=== PATIENT | female | born 1970 | race Caucasian/White ===

== ENCOUNTER 2019-12-16 06:03 | Day surgery (SDC) | payer OTHER ==
[~2019-12-16 06:03] MED LIST: Lactated Ringers 1,000 ML IV SCH; ceFAZolin 2 GM in Premix Bag 1 BAG IV ONE
[2019-12-16] MEDS ORDERED: Octyl 2-Cyanoacrylate 1 Tube ONE (07:17)
[2019-12-16] MEDS ORDERED: Bupivacaine 0.25%/EPINEPHrine 1:200,000 10 ML SDV ONE ×2 (07:17→08:08)
[2019-12-16] MEDS ORDERED: Rocuronium Bromide 50 MG/5 ML Syringe ONE (07:33)
[2019-12-16] MEDS ORDERED: Dexamethasone 4 MG/ML 5 ML MDV ONE (07:33)
[2019-12-16] MEDS ORDERED: Ondansetron 4 MG/2 ML SDV ONE (07:33)
[2019-12-16] MEDS ORDERED: Midazolam 1 MG/ML 2 ML SDV ONE (07:34)
[2019-12-16] MEDS ORDERED: Propofol 200 MG/20 ML SDV ONE (07:34)
[2019-12-16] MEDS ORDERED: fentaNYL 250 MCG/5 ML SDV ONE ×2 (07:34→08:57)
[2019-12-16] MEDS ORDERED: Glycopyrrolate 0.2 MG/ML SDV ONE ×2 (07:34→09:15)
[2019-12-16] MEDS ORDERED: Scopolamine 1.5 MG Transdermal Patch TRDERM PRN (07:48)
--- NOTE | 2019-12-16 07:55 | PCM.PREANE ---
Preanesthetic Assessment - Anesthesia/Transfusion/Family Hx Anesthesia History: Prior Anesthesia Without Reaction Family History of Anesthesia Reaction: No Transfusion History: No Prior Transfusion(s) Intubation History: Unknown - Review of Systems General: No Symptoms Pulmonary: No Symptoms Cardiovascular: No Symptoms Gastrointestinal: Abdominal Pain Neurological: No Symptoms Other: Reports: None - Physical Assessment Height: 5 ft 3 in Weight: 103.419 kg ASA Class: 2 Mental Status: Alert & Oriented x3 Airway Class: Mallampati = 2 Dentition: Reports: Normal Dentition Thyro-Mental Finger Breadths: 2 Mouth Opening Finger Breadths: 2 ROM/Head Extension: Full Lungs: Clear to Auscultation, Normal Respiratory Effort Cardiovascular: Regular Rate, Regular Rhythm - Lab Values: Laboratory Last Values Urine HCG, Qual NEGATIVE (NEGATIVE) 12/16/19 06:30 SARS Virus RNA (PCR) NEGATIVE (NEGATIVE) 12/16/19 06:15 - Allergies Allergies/Adverse Reactions: Allergies Allergy/AdvReac Type Severity Reaction Status Date / Time adhesive Allergy Blisters Verified 12/10/19 13:41 aspirin Allergy Vomiting Verified 12/10/19 13:41 bacitracin Allergy "sores" Verified 12/10/19 13:41 [From Neosporin ([id number])] neomycin Allergy "sores" Verified 12/10/19 13:41 [From Neosporin ([id number])] polymyxin B Allergy "sores" Verified 12/10/19 13:41 [From Neosporin ([id number])] - Blood Blood Available: No - Anesthesia Plan Pre-Op Medication Ordered: None - Acknowledgements Anesthesia Type Planned: General Anesthesia Pt an Appropriate Candidate for the Planned Anesthesia: Yes Alternatives and Risks of Anesthesia Discussed w Pt/Guardian: Yes Pt/Guardian Understands and Agrees with Anesthesia Plan: Yes PreAnesthesia Questionnaire HEENT History: Reports: Allergic Rhinitis, Other (See Below) Other HEENT History: wears glasses Cardiovascular History: Reports: None Respiratory History: Reports: None Gastrointestinal History: Reports: GERD, Other (See Below) (cholecystitis) Genitourinary History: Reports: None Musculoskeletal History: Reports: Arthritis (bilat. knees and right hip), Back Pain, Chronic Neurological History: Reports: None Psychiatric History: Reports: None Endocrine/Metabolic History: Reports: Hypothyroidism, Obesity/BMI 30+ (BMI 40.39) Hematologic History: Reports: None Immunologic History: Reports: None Oncologic (Cancer) History: Reports: None Dermatologic History: Reports: None - Past Surgical History Head Surgeries/Procedures: Reports: None HEENT Surgical History: Reports: None Cardiovascular Surgical History: Reports: None Respiratory Surgical History: Reports: None GI Surgical History: Reports: None Female Surgical History: Reports: Breast Biopsy (lumpectomy) Endocrine Surgical History: Reports: None Neurological Surgical History: Reports: None Musculoskeletal Surgical History: Reports: Other (See Below) Other Musculoskeletal Surgeries/Procedures:: left foot surgery Oncologic Surgical History: Reports: None Dermatological Surgical History: Reports: None - SUBSTANCE USE Smoking Status *Q: Former Smoker (quit ') Tobacco Use Within Last Twelve Months: No - HOME MEDS Home Medications: Home Meds Ascorbate Calcium [Vitamin C] 2,000 mg PO DAILY 12/10/19 [History] Cetirizine [ZyrTEC] 10 mg PO DAILY 12/10/19 [History] Cyclobenzaprine HCl 10 mg PO ASDIRECTED PRN 12/10/19 [History] Fish Oil/[place]-3 Fatty Acids [Fish Oil 1,000 MG] 2,000 mg PO DAILY 12/10/19 [History] Furosemide [Lasix] 10 mg PO ASDIRECTED 12/10/19 [History] Levothyroxine Sodium [Synthroid] 175 mcg PO DAILY 12/10/19 [History] Multivitamin [Multivitamins] 1 tab PO DAILY 12/10/19 [History] Naproxen Sodium [Aleve] 1 tab PO DAILY 12/10/19 [History] Omeprazole 20 mg PO DAILY 12/10/19 [History] atorvaSTATin Calcium [Atorvastatin Calcium] 20 mg PO DAILY 12/10/19 [History] traMADol HCl [Tramadol HCl] 50 mg PO ASDIRECTED PRN 12/10/19 [History] - CURRENT (IN HOUSE) MEDS Current Meds: Current Medications Lactated Ringer's (Ringers, Lactated) 1,000 mls @ 125 mls/hr IV ASDIRECTED ALPHONSO Scopolamine (Transderm-Scop) 1.5 mg TRDERM Q72H PRN PRN Reason: Nausea Discontinued Medications Bupivacaine HCl/Epinephrine Bitart (Marcaine 0.25%/Epinephrine 1:200,000) Confirm Administered Dose 20 ml .ROUTE .STK-MED ONE Stop: 12/16/19 07:18 Dexamethasone (Dexamethasone) Confirm Administered Dose 20 mg .ROUTE .STK-MED ONE Stop: 12/16/19 07:34 Fentanyl (Sublimaze) Confirm Administered Dose 250 mcg .ROUTE .STK-MED ONE Stop: 12/16/19 07:35 Glycopyrrolate (Robinul) Confirm Administered Dose 0.2 mg .ROUTE .STK-MED ONE Stop: 12/16/19 07:35 Cefazolin Sodium/Dextrose 2 gm (/ Premix) 50 mls @ 100 mls/hr IV ONETIME ONE Stop: 12/16/19 05:29 Midazolam HCl (Versed 1 Mg/Ml) Confirm Administered Dose 2 mg .ROUTE .STK-MED ONE Stop: 12/16/19 07:35 Octyl Cyanoacrylate (Dermabond Advance) Confirm Administered Dose 1 applic .ROUTE .STK-MED ONE Stop: 12/16/19 07:18 Ondansetron HCl (Zofran) Confirm Administered Dose 4 mg .ROUTE .STK-MED ONE Stop: 12/16/19 07:34 Propofol (Diprivan 20 Ml) Confirm Administered Dose 200 mg .ROUTE .STK-MED ONE Stop: 12/16/19 07:35 Rocuronium [place] (Rocuronium [place]) Confirm Administered Dose 50 mg .ROUTE .STK-MED ONE Stop: 12/16/19 07:34
[2019-12-16] MEDS ORDERED: Bupivacaine 0.25% 10 ML SDV ONE (08:01)
[2019-12-16] MEDS ORDERED: Sodium Chloride 0.9% 20 ML ONE (08:26)
[2019-12-16] MEDS ORDERED: ceFAZolin 1 GM Vial ONE (08:26)
[2019-12-16] MEDS ORDERED: Acetaminophen 1,000 MG in Premix Bag 1 BAG IV PRN (09:24)
[2019-12-16] MEDS ORDERED: fentaNYL 100 MCG/2 ML SDV IVPUSH PRN (09:24)
[2019-12-16] MEDS ORDERED: Ketorolac 30 MG/ML SDV ONE (09:25)
--- NOTE | 2019-12-16 09:47 | PCM.OPNOTE ---
- General Post-Op/Procedure Note Date of Surgery/Procedure: 12/16/19 Operative Procedure(s): lap missy Findings: gb was yellow and green cw chronic cholecystitis, wall is not thickened; large gallstone;[id number] Pre Op Diagnosis: chronic cholecystitis Post-Op Diagnosis: Same Anesthesia Technique: General ET Tube Primary Surgeon: Paul Trammell Pathology: sent Complications: None Condition: Good
[2019-12-16] MEDS ORDERED: Acetaminophen/oxyCODONE 325-5 MG Tab PO PRN (09:51)
--- NOTE | 2019-12-16 10:38 | PCM.POSTAN ---
POST ANESTHESIA ASSESSMENT - MENTAL STATUS Mental Status: Alert, Oriented - VITAL SIGNS Vital Signs: Last Vital Signs Temp 36.3 C 12/16/19 09:44 Pulse 68 12/16/19 10:34 Resp 13 12/16/19 10:34 BP 124/68 12/16/19 10:34 Pulse Ox 94 L 12/16/19 10:34 - RESPIRATORY Respiratory Status: Respiratory Rate WNL, Airway Patent, O2 Saturation Stable - CARDIOVASCULAR CV Status: Pulse Rate WNL, Blood Pressure Stable - GASTROINTESTINAL GI Status: No Symptoms - PAIN Pain Score: 0 - POST OP HYDRATION Hydration Status: Adequate & Stable - OBSERVATIONS Free Text/Narrative:: No anesthesia problems
[2019-12-16] MEDS ORDERED: Ondansetron 4 MG/2 ML SDV IVPUSH ONE (12:08)
--- NOTE | 2019-12-16 12:48 | OR ---
SURGEON: Paul Trammell MD DATE OF PROCEDURE: 12/16/2019 PREOPERATIVE DIAGNOSIS: Chronic cholecystitis. POSTOPERATIVE DIAGNOSIS: Chronic cholecystitis. PROCEDURE PROPOSED: Laparoscopic cholecystectomy. PROCEDURE PERFORMED: Laparoscopic cholecystectomy. FINDINGS: Gallbladder was yellow and green consistent with chronic cholecystitis and wall is not thickened, large gallstone. PROCEDURE NOTE: The patient was taken to the operating room and placed in the supine position. After the intubation of general endotracheal anesthesia, the patient's abdomen was prepped and draped in the usual sterile fashion. Using Optiview, a 12 mm trocar was placed supraumbilically and then followed with pneumoperitoneum. A 5 mm trocar was placed in the epigastrium and two 5 mm trocars placed in the right upper quadrant. The placement of the last three trocars was done under direct video supervision. Upon gaining entrance to the abdominal cavity, an extensive examination was then performed. The gallbladder was located and identified and retracted to the dome of the liver at the triangle of [place]ot. The cystic duct was clipped three more times and then using the endoscopic clip, was transected with placement of the endoscopic clip and transection was performed with care, ensuring the posterior prong of the instruments were clearly visualized prior to exercising the procedure. The gallbladder was dissected using electrocautery out of the liver bed and then removed using endoscopic bag through the umbilical site. The gallbladder was removed en bloc and there was no bile spillage and this was then followed with extensive irrigation until the bile was clear from blood and bile. The trocars were then removed under direct video supervision. The 12 mm umbilical site was then closed with deep stitches using 0 Vicryl followed with proximal stitches using 3-0 Vicryl and Dermabond. The other three trocar sites were closed with 3-0 Vicryl followed with approximation of skin with Dermabond. The patient was then awakened and extubated and transferred to the recovery room in hemodynamically stable condition. At the conclusion of the surgery, before closing the abdominal wound, instrument count and sponge count were done and were correct. The patient tolerated the procedure well and there were no intraoperative complications. Dr. Trammell was present through the whole procedure. Just before surgery, a timeout was called. The patient was identified and procedure identified and procedure started. Intraoperative findings as dictated above. As always, thank you for the kind referral. JESSICA / REECE /[id number]
--- NOTE | 2019-12-16 13:41 | PCM48HPAN ---
Post Anesthesia Note - EVALUATION WITHIN 48HRS OF ANESTHETIC Vital Signs in Normal Range: Yes Patient Participated in Evaluation: Yes Respiratory Function Stable: Yes Airway Patent: Yes Cardiovascular Function Stable: Yes Hydration Status Stable: Yes Pain Control Satisfactory: Yes Nausea and Vomiting Control Satisfactory: Yes Mental Status Recovered: Yes Vital Signs: Last Vital Signs Temp 36.0 C L 12/16/19 10:40 Pulse 85 12/16/19 12:40 Resp 16 12/16/19 12:40 BP 136/85 12/16/19 12:40 Pulse Ox 96 12/16/19 12:40 - COMMENTS/OBSERVATIONS Free Text/Narrative:: No anesthesia problems
== END 2019-12-16 13:05 | disposition home or self-care (01) ==
LOC: MW.SDS 06:03
PROVIDERS: ATTEND Surgery
DX: K80.10 Calculus of gallbladder with chronic cholecystitis without obstruction (principal); Z11.59 Encounter for screening for other viral diseases; E66.9 Obesity, unspecified; E03.9 Hypothyroidism, unspecified; Z68.41 Body mass index [BMI] 40.0-44.9, adult; Z88.8 Allergy status to other drugs, medicaments and biological substances; Z91.048 Other nonmedicinal substance allergy status; Z87.891 Personal history of nicotine dependence; Z79.899 Other long term (current) drug therapy
CPT/HCPCS: 47562; 81025; 87635; 88304; A9270; J0131; J0690; J1100; J1885; J2250; J2405; J2704; J3010; J3490; J7120; 00790; U0002